=== PATIENT | female | born 1970 | race Hispanic/Latino ===

== ENCOUNTER 2022-08-24 07:59 | Outpatient (CLI) | payer BC | END 2022-08-24 08:00 | disposition home or self-care (01) | LOC: CSHMRI 07:59 | PROVIDERS: ATTEND Family Medicine | DX: M54.12 Radiculopathy, cervical region (principal); M47.812 Spondylosis without myelopathy or radiculopathy, cervical region | CPT/HCPCS: 72141 ==

== ENCOUNTER 2023-12-20 11:03 | Outpatient (CLI) | payer BC | END 2023-12-20 11:04 | disposition home or self-care (01) | LOC: CSHMAMMO 11:03 | PROVIDERS: ATTEND Family Medicine | DX: Z12.31 Encounter for screening mammogram for malignant neoplasm of breast (principal); Z80.3 Family history of malignant neoplasm of breast; Z98.82 Breast implant status; Z90.11 Acquired absence of right breast and nipple; Z91.89 Other specified personal risk factors, not elsewhere classified | CPT/HCPCS: 77063; 77067 ==